=== PATIENT | female | born 1935 | race Caucasian/White ===

== ENCOUNTER 2019-07-06 14:15 | Emergency (ER) | payer MEDICARE, BC ==
[2019-07-06] MEDS ORDERED: Sodium Chloride 0.9% 10 ML Syringe FLUSH PRN (14:42)
[2019-07-06] MEDS ORDERED: Sodium Chloride 0.9% 1,000 ML IV SCH (14:45)
[2019-07-06] MEDS ORDERED: Ondansetron 4 MG/2 ML SDV IVPUSH ONE (14:45)
--- NOTE | 2019-07-06 14:46 | EDM.PDOC ---
ED HPI GENERAL MEDICAL PROBLEM - General Time Seen by Provider: 07/06/19 14:24 Source of Information: Reports: Patient, EMS, EMS Notes Reviewed - History of Present Illness INITIAL COMMENTS - FREE TEXT/NARRATIVE: Cristina is an 84 y/o female who comes to the ER by EMS after she started to have rectal bleeding this AM when she woke up. She reports getting up about 0830 and going to the bathroom and reporting bright red bleeding in the toilet. She had no symptoms. She then did eat breakfast, but had another 3 bright red bloody stools. She is not symptomatic, but she had the same thing happen to her about a year ago and she was sent to [facility] at that time. - Related Data Allergies Allergy/AdvReac Type Severity Reaction Status Date / Time donepezil [From Aricept] Allergy Anxiety Verified 07/06/19 14:55 latanoprost Allergy Rash Verified 07/06/19 14:55 Penicillins Allergy Cannot Verified 07/06/19 14:55 Remember Home Meds: Home Meds Brinzolamide [Azopt 1% Ophth Susp] 1 drop EYEBOTH TID 07/06/19 [History] Calcium Citrate/Vitamin D3 [Citracal + D Maximum Caplet] 1 each PO DAILY [History] Cyanocobalamin (Vitamin B-12) [Vitamin B12] 2,500 mcg PO DAILY 07/06/19 [History ] Dorzolamide HCl 1 drop EYEBOTH TID 07/06/19 [History] Multivit-Min/FA/Lycopen/Lutein [Centrum Silver Tablet] 1 each PO DAILY 07/06/19 [History] PARoxetine [Paxil] 20 mg PO DAILY 07/06/19 [History] Pantoprazole [ProTONIX] 40 mg PO DAILY 07/06/19 [History] Timolol [Betimol] 1 drop EYEBOTH TID 07/06/19 [History] Warfarin Sodium [Jantoven] 2.5 mg PO ASDIRECTED 07/06/19 [History] Past Medical History Gastrointestinal History: Reports: GI Bleed Social & Family History - Living Situation & Occupation Living situation: Reports: Occupation: Retired Social History Comment: Lives in her own home in [place], [place] Review of Systems - Review of Systems Review Of Systems: See Below Constitutional: Reports: No Symptoms Eyes: Reports: No Symptoms Ears: Reports: No Symptoms Nose: Reports: No Symptoms Mouth/Throat: Reports: No Symptoms Respiratory: Reports: No Symptoms Cardiovascular: Reports: No Symptoms GI/Abdominal: Reports: Other (Hematochezia) Genitourinary: Reports: No Symptoms Musculoskeletal: Reports: No Symptoms Skin: Reports: No Symptoms Neurological: Reports: No Symptoms Psychiatric: Reports: No Symptoms ED EXAM, GENERAL - Physical Exam Exam: See Below General Appearance: Alert, WD/WN, No Apparent Distress (Pleasant elderly female. ) Ears: Hearing Grossly Normal, Normal TMs Nose: Normal Inspection Throat/Mouth: Normal Inspection, Normal Lips, Normal Voice Head: Atraumatic, Normocephalic Neck: Supple Respiratory/Chest: No Respiratory Distress, Lungs Clear, Chest Non-Tender Cardiovascular: Regular Rate, Rhythm, No JVD, No Murmur GI/Abdominal: Normal Bowel Sounds, Soft, Non-Tender (Female) Exam: Deferred Back Exam: Normal Inspection Extremities: Normal Inspection, Normal Capillary Refill Neurological: Alert, Oriented, CN II-XII Intact, Normal Cognition, No Motor/ Sensory Deficits Psychiatric: Normal Affect, Normal Mood Skin Exam: Warm, Dry, Intact, Normal Color, No Rash Lymphatic: No Adenopathy EKG INTERPRETATION EKG Date: 07/06/19 Time: 15:23 Rhythm: NSR Rate (Beats/Min): 61 [place]: Normal P-Wave: Present QRS: Normal ST-T: Normal EKG Interpretation Comments: NSR Course - Vital Signs Text/Narrative:: 1430 The patient was seen by the [facility]. Labs, EKG, IV fluids, Protonix,and Zofran ordered. [id number] [facility] [address] and Dr Bo accepted the patient to the ER. Plan ground transfer to [place]. Patient remained stable in the ER util she left with EMS. Last Recorded V/S: Last Vital Signs Temp 36.9 C 07/06/19 14:15 Pulse 70 07/06/19 14:15 Resp 16 07/06/19 14:15 BP 121/91 H 07/06/19 14:15 Pulse Ox 97 07/06/19 14:15 - Orders/Labs/Meds Orders: Active Orders 24 hr Category Date Time Status EKG Documentation Completion [RC] STAT Care 07/06/19 14:43 Active CBC WITH AUTO DIFF [HEME] Stat Lab 07/06/19 14:41 Ordered COMPREHENSIVE METABOLIC PN,CMP [CHEM] Stat Lab 07/06/19 14:41 Ordered INR,PT,PROTHROMBIN TIME [COAG] Stat Lab 07/06/19 14:42 Ordered PTT,PARTIAL THROMBOPLSTIN TIME [COAG] Stat Lab 07/06/19 14:42 Ordered TROPONIN I [CHEM] Stat Lab 07/06/19 14:41 Ordered Pantoprazole [ProTONIX IV] Med 07/06/19 15:01 Once 80 mg IVPUSH ONETIME ONE Sodium Chloride 0.9% [Normal Saline] 1,000 ml Med 07/06/19 14:45 Active IV ASDIRECTED Sodium Chloride 0.9% [Saline Flush] Med 07/06/19 14:42 Active 10 ml FLUSH ASDIRECTED PRN Saline Lock Insert [OM.PC] Stat Oth 07/06/19 14:42 Ordered Medication Orders Sodium Chloride (Normal Saline) 1,000 mls @ 150 mls/hr IV ASDIRECTED TAYLOR Sodium Chloride (Saline Flush) 10 ml FLUSH ASDIRECTED PRN PRN Reason: Keep Vein Open Meds: Medications Generic Name Dose Route Start Last Admin Trade Name Freq PRN Reason Stop Dose Admin Sodium Chloride 1,000 mls @ 150 mls/hr 07/06/19 14:45 Normal Saline IV ASDIRECTED TAYLOR Sodium Chloride 10 ml 07/06/19 14:42 Saline Flush FLUSH ASDIRECTED PRN Keep Vein Open Discontinued Medications Generic Name Dose Route Start Last Admin Trade Name Freq PRN Reason Stop Dose Admin Ondansetron HCl 4 mg 07/06/19 14:45 Zofran IVPUSH 07/06/19 14:46 ONETIME ONE Departure - Departure Time of Disposition: 15:45 Disposition: DC/Tfer to Acute Hospital 02 Condition: Good Clinical Impression: GI bleeding, Chronic anticoagulation - Discharge Information *PRESCRIPTION DRUG MONITORING PROGRAM REVIEWED*: Not Applicable *COPY OF PRESCRIPTION DRUG MONITORING REPORT IN PATIENT YUN: Not Applicable Forms: Interfacility Transfer EMTALA Additional Instructions: -Transfer to [facility] to Dr Bo in ER via [facility] EMS Sepsis Event Note - Focused Exam Vital Signs: Vital Signs Temp Pulse Resp BP Pulse Ox 07/06/19 14:15 36.9 C 70 16 121/91 H 97 Date Exam was Performed: 07/06/19 Time Exam was Performed: 15:02 - My Orders Last 24 Hours: My Active Orders 07/06/19 14:41 CBC WITH AUTO DIFF [HEME] Stat COMPREHENSIVE METABOLIC PN,CMP [CHEM] Stat TROPONIN I [CHEM] Stat 07/06/19 14:42 INR,PT,PROTHROMBIN TIME [COAG] Stat PTT,PARTIAL THROMBOPLSTIN TIME [COAG] Stat Sodium Chloride 0.9% [Saline Flush] 10 ml FLUSH ASDIRECTED PRN Saline Lock Insert [OM.PC] Stat 07/06/19 14:43 EKG Documentation Completion [RC] STAT 07/06/19 14:45 Sodium Chloride 0.9% [Normal Saline] 1,000 ml IV ASDIRECTED 07/06/19 15:01 Pantoprazole [ProTONIX IV] 80 mg IVPUSH ONETIME ONE - Assessment/Plan Last 24 Hours: My Active Orders 07/06/19 14:41 CBC WITH AUTO DIFF [HEME] Stat COMPREHENSIVE METABOLIC PN,CMP [CHEM] Stat TROPONIN I [CHEM] Stat 07/06/19 14:42 INR,PT,PROTHROMBIN TIME [COAG] Stat PTT,PARTIAL THROMBOPLSTIN TIME [COAG] Stat Sodium Chloride 0.9% [Saline Flush] 10 ml FLUSH ASDIRECTED PRN Saline Lock Insert [OM.PC] Stat 07/06/19 14:43 EKG Documentation Completion [RC] STAT 07/06/19 14:45 Sodium Chloride 0.9% [Normal Saline] 1,000 ml IV ASDIRECTED 07/06/19 15:01 Pantoprazole [ProTONIX IV] 80 mg IVPUSH ONETIME ONE
[2019-07-06] MEDS ORDERED: Pantoprazole 40 MG Vial IVPUSH ONE (15:01)
[2019-07-06 15:40] LABS: CHLORIDE,CL 110 mmol/L (98-107); SODIUM,NA 148 mmol/L (136-145)
[2019-07-06 15:42] LABS: ANION GAP 15.6 mmol/L (10-20)
== END 2019-07-06 17:05 | disposition short-term general hospital (02) ==
LOC: VM.ED 14:15
DX: K92.2 Gastrointestinal hemorrhage, unspecified (principal); Z79.01 Long term (current) use of anticoagulants; Z88.0 Allergy status to penicillin; Z88.8 Allergy status to other drugs, medicaments and biological substances
CPT/HCPCS: 36415; 80053; 82274; 84484; 85025; 85610; 85730; 93005; 93010; 96361; 96374; 96375; 99284-GF; 99285-25; C9113; J2405; J7030